=== PATIENT | male | born 1945 | race Caucasian/White ===

== ENCOUNTER → 2021-12-13 | Outpatient (CLI) | payer MEDICARE, OTHER ==
[~2021-12-13] VITALS: Ht 172.7 cm; Wt 105.5 kg
[~2021-12-13] MED LIST: CYMBALTA 60MG60 MG PO; FOLIC ACID 11 MG/TA1 PO; FORT1000TA PO; LIPITOR20 MG PO; METHOTREXA2.5 MG/TAB PO; MULTI VITAMINS1 TAB PO; PHARMASSURE ZIN50 MG PO; RT ADVAIR 228 DISKUS IH; RT SPIRIVA18 MCG IH; VENTOLIN0.09 MG IH
[2021-12-13 07:09] VITALS: BP 129/79; PULSE 115; TEMP 98.2
[2021-12-13 08:52] VITALS: BP 135/85; PULSE 128
== END ==
LOC: COL.RAD 06:46
DX: R93.89 Abnormal findings on diagnostic imaging of other specified body structures (principal)